=== PATIENT | female | born 1965 | race Hispanic/Latino ===

== ENCOUNTER 2023-12-16 10:10 | Emergency (ER) | payer SELFPAY ==
[2023-12-16] MEDS ORDERED: HYDROcodone/Acetaminophen 5/325 mg Tablet ONE (11:15)
== END 2023-12-16 11:42 | disposition home or self-care (01) ==
LOC: ERS 10:10
DX: S82.64XA Nondisplaced fracture of lateral malleolus of right fibula, initial encounter for closed fracture (principal); E11.9 Type 2 diabetes mellitus without complications; Z79.84 Long term (current) use of oral hypoglycemic drugs; W10.8XXA Fall (on) (from) other stairs and steps, initial encounter
CPT/HCPCS: 27786

== ENCOUNTER 2024-05-10 15:25 | Emergency (ER) | payer SELFPAY ==
[2024-05-10] MEDS ORDERED: Bacitracin 1 PK ONE (16:04)
== END 2024-05-10 16:21 | disposition home or self-care (01) ==
LOC: ERS 15:25
DX: Z48.00 Encounter for change or removal of nonsurgical wound dressing (principal); Z36.2 Encounter for other antenatal screening follow-up; E11.9 Type 2 diabetes mellitus without complications
CPT/HCPCS: 99282